=== PATIENT | female | born 1995 | race Caucasian/White ===

== ENCOUNTER 2016-09-28 12:34 | Emergency (ER) | payer SELFPAY ==
[~2016-09-28] VITALS: Ht 182.9 cm; Wt 94.3 kg
[2016-09-28] MEDS ORDERED: NAPROXEN 500 MG TABLET PO ONE (13:30)
--- NOTE | 2016-09-28 13:30 | PHYS DOC ---
Past Medical History Past Medical History: Asthma Past Surgical History: No Surgical History Alcohol Use: Occasionally Drug Use: None Adult General Chief Complaint Chief Complaint: SYNCOPE HPI HPI Patient is a 20 year old female who presents with cough, sore throat, syncope. Patient reports for the past couple weeks she has had cough and sore throat. Last night she was sitting on the couch; right after she stood up she got dizzy and lost consciousness briefly. Not injured from fall. No lightheadedness at this time. No chest discomfort or shortness of breath. She does report she has had decreased PO intake; no nausea, simply decreased appetite. Review of Systems Review of Systems Constitutional: Syncope. Denies fever or chills Eyes: Denies change in visual acuity or eye pain HENT: Sore throat Respiratory: Cough. Denies shortness of breath Cardiovascular: Denies chest pain GI: Denies abdominal pain, nausea, vomiting, bloody stools or diarrhea : Denies dysuria or hematuria Musculoskeletal: Denies back pain or joint pain Integument: Denies rash or skin lesions Neurologic: Denies headache, focal weakness or sensory changes Current Medications Current Medications Current Medications Medications (Trade) Dose Ordered Sig/Britany Start Time Stop Time Status Last Admin Dose Admin Naproxen (Naprosyn) 500 mg 1X ONCE 09/28/16 13:30 09/28/16 13:33 DC 09/28/16 13:49 500 MG Nitrofurantoin Macrocrystals (Macrobid) 100 mg 1X ONCE 09/28/16 14:45 09/28/16 14:46 DC 09/28/16 14:52 100 MG Allergies Allergies Allergies Coded Allergies Type Severity Reaction Last Updated Verified No Known Drug Allergies 09/28/16 No Physical Exam Physical Exam Constitutional: Well developed, well nourished, no acute distress, non-toxic appearance HENT: Normocephalic, atraumatic, bilateral external ears normal. Oropharynx mildly erythematous without exudate Eyes: PERRL, EOMI, conjunctiva normal, no discharge Neck: Normal range of motion, no stridor Cardiovascular: Heart rate normal, regular rhythm, no murmur Lungs & Thorax: Bilateral breath sounds clear to auscultation Abdomen: Bowel sounds normal, soft, non-distended, no TTP Skin: Warm, dry, no erythema, no rash Extremities: No obvious deformity, no edema Neurologic: Alert and oriented X 3, GCS 15, CN II-XII grossly intact, strength intact and symmetrical throughout, sensation to light touch intact throughout, no dystaxia noted Psychologic: Affect normal, judgement normal, mood normal Current Patient Data Vital Signs Vital Signs Date Time Temp Pulse Resp B/P Pulse Ox O2 Delivery O2 Flow Rate FiO2 09/28/16 14:57 74 16 102/54 99 Room Air 09/28/16 12:51 97.5 97.5 Lab Values Laboratory Tests Test 09/28/16 12:41 Urine Collection Type Unknown Urine Color Yellow Urine Clarity Cloudy Urine pH 6.0 Urine Specific [place] 1.020 Urine Protein Negativemg/dL (NEG-TRACE) Urine Glucose (UA) Negativemg/dL (NEG) Urine Ketones (Stick) Negativemg/dL (NEG) Urine Blood Negative (NEG) Urine Nitrite Negative (NEG) Urine Bilirubin Negative (NEG) Urine Urobilinogen Dipstick 0.2mg/dL (0.2 mg/dL) Urine Leukocyte Esterase Large (NEG) Urine RBC 0/HPF (0-2) Urine WBC 11-20/HPF (0-4) Urine Squamous Epithelial Cells Many/LPF Urine Bacteria Many/HPF (0-FEW) Urine Mucus Marked/LPF Urine Test Negative (NEG) EKG EKG EKG (my read): sinus rhythm, rate 65, normal axis, intervals wnl, no acute ischemic changes Radiology/Procedures Radiology/Procedures [] Course & Med Decision Making Course & Med Decision Making Pertinent Labs and Imaging studies reviewed. (See chart for details) Patient is a 20-year-old female who presents after syncopal episode last night. Likely viral URI some measure of dehydration leading to orthostasis last night. Will obtain EKG, UA, urine screen. Patient given cups of water for oral rehydration. Dose of naproxen ordered. EKG okay per my read. Urine negative. UA indicative of UTI. Discussed results with patient. Dose of Macrobid ordered. Patient discharged home with prescription for same, instructions for follow-up, return precautions. Dragon Disclaimer Dragon Disclaimer This electronic medical record was generated, in whole or in part, using a voice recognition dictation system. Departure Departure Impression: Primary Impression: Syncope Additional Impressions: UTI (urinary tract infection) URI (upper respiratory infection) Disposition: HOME, SELF-CARE Condition: STABLE Referrals: NO PCP (PCP) Patient Instructions: Syncope, Upper Respiratory Infection, Adult, Urinary Tract Infection Scripts Nitrofurantoin Monohyd/M-Cryst (Macrobid 100 Mg Capsule)100 Mg Capsule1 Cap PO BID #10 CAP Prov:TRACY LEON MD 09/28/16 Problem Qualifiers TRACY LEON MD Sep 28, 2016 13:30
[2016-09-28 13:56] LABS: NEG OBC UR NEG; POS OBC UR POS
[2016-09-28 13:59] LABS: BILIRUBIN,URINE NEGATIVE (NEG); GLUCOSE,URINE NEGATIVE (NEG); NITRITE,URINE NEGATIVE (NEG); PROTEIN,URINE NEGATIVE (NEG-TRACE); UROBILINOGEN,URINE 0.2 mg/dL (0.2 mg/dL)
[2016-09-28 14:16] LABS: BACTERIA,URINE MANY /HPF (0-FEW); RBC,URINE 0 /HPF (0-2); SQUAMOUS EPITHELIAL CELL,UR MANY /LPF
[2016-09-28] MEDS ORDERED: NITROFURANTOIN MONOHYD/M-CRYST 100 MG CAPSULE. PO ONE (14:45)
[2016-09-28] MEDS ORDERED: NITR100C62 PO (14:54)
[2016-09-28 14:57] VITALS: BP 102/54
--- NOTE | 2016-09-29 06:38 | EKG ---
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
== END 2016-09-28 14:57 | disposition home or self-care (01) ==
LOC: ER 12:34
DX: R55 Syncope and collapse (principal); N39.0 Urinary tract infection, site not specified; J06.9 Acute upper respiratory infection, unspecified; J45.909 Unspecified asthma, uncomplicated
CPT/HCPCS: 81001; 81025; 87086; 93005; 99285-25

== ENCOUNTER 2017-12-14 13:49 | Emergency (ER) | payer SELFPAY ==
[2017-12-14 14:28] LABS: NEGATIVE OBC STREP NEG; POSITIVE OBC STREP POS
== END 2017-12-14 15:03 | disposition home or self-care (01) ==
LOC: ER 13:49
DX: H66.93 Otitis media, unspecified, bilateral (principal); J45.909 Unspecified asthma, uncomplicated
CPT/HCPCS: 87070; 87880; 99283

== ENCOUNTER 2018-01-12 16:46 | Emergency (ER) | payer SELFPAY ==
[2018-01-12] MEDS: HYDROcodone/APAP 5/325MG 1 TAB TABLET PO (17:24)
== END 2018-01-12 17:25 | disposition home or self-care (01) ==
LOC: ER 16:46
DX: K04.7 Periapical abscess without sinus (principal); J45.909 Unspecified asthma, uncomplicated
CPT/HCPCS: 99283